=== PATIENT | male | born 1940 | race Caucasian/White ===

== ENCOUNTER 2019-05-30 08:28 | Emergency (ER) | payer MEDICARE ==
[2019-05-30 08:36] VITALS: TEMP 97.6
[2019-05-30] MEDS ORDERED: SODIUM CHLORIDE 0.9% 1,000 ML IV STA (08:49)
[2019-05-30] MEDS ORDERED: ASPIRIN 81 MG PO STA (08:49)
--- NOTE | 2019-05-30 08:53 | ED ---
General Adult HPI - General Chief complaint: Arrhythmia/Palpitations Stated complaint: BP problems Time Seen by Provider: 05/30/19 08:29 Source: patient, RN notes reviewed Mode of arrival: wheelchair Limitations: no limitations - History of Present Illness Initial comments: Patient is a pleasant 78-year-old male presenting to the emergency Department wi th for concerns regarding palpitations. Patient woke up this morning and felt his heart racing. Patient did take his blood pressure heart rate on the monitor. Monitor showed heart rate at 127 with fibrillation. Patient does have history of atrial fibrillation. Patient no longer on Coumadin. Patient recently was changed from losartan to hydrochlorothiazide. Blood pressure was high this morning. Patient did take his hydrochlorothiazide as well as Xanax. Patient is symptom-free at this time. Patient states palpitations lasted less than 15 or 20 minutes. - Related Data Home Medications Medication Instructions Recorded Confirmed Levothyroxine Sodium [Synthroid] 200 mcg PO DAILY 01/31/15 05/30/19 Meclizine [Antivert] 25 mg PO TID PRN 01/31/15 05/30/19 Multivitamin [Men's Multi-Vitamin] 1 tab PO DAILY 01/31/15 05/30/19 Heath-3 Fatty Acids/Fish Oil [Fish 1 cap PO DAILY 01/31/15 05/30/19 Oil 1,000 mg Softgel] Omeprazole [PriLOSEC] 20 mg PO AC-BRKFST 01/31/15 05/30/19 metFORMIN HCL [Glucophage] 1,000 mg PO BID 01/31/15 05/30/19 ALPRAZolam [Xanax] 0.5 mg PO DAILY PRN 05/30/19 05/30/19 Doxazosin [Cardura] 4 mg PO DAILY 05/30/19 05/30/19 Losartan/Hydrochlorothiazide 1 tab PO DAILY 05/30/19 05/30/19 [Hyzaar 100-25 Tablet] Allergies Allergy/AdvReac Type Severity Reaction Status Date / Time Beta-Blockers Allergy bradycardia Verified 05/30/19 10:20 (Beta-Adrenergic Bloc carvedilol Allergy palpitation Verified 05/30/19 10:20 s nifedipine [From Adalat] Allergy Rash/Hives Verified 05/30/19 10:20 amlodipine besylate AdvReac face Verified 05/30/19 10:20 [From Norvasc] red,throat itching hydrochlorothiazide AdvReac BLOOD Verified 05/30/19 10:20 [From Zestoretic] PRESSURE ISSUES lisinopril [From Zestoretic] AdvReac BLOOD Verified 05/30/19 10:20 PRESSURE ISSUES paroxetine HCl [From Paxil] AdvReac feels Verified 05/30/19 10:20 "wired" Review of Systems ROS Statement: Those systems with pertinent positive or pertinent negative responses have been documented in the HPI. ROS Other: All systems not noted in ROS Statement are negative. Constitutional: Denies: fever Eyes: Denies: eye pain ENT: Denies: ear pain Respiratory: Denies: cough, dyspnea Cardiovascular: Reports: palpitations. Denies: chest pain Endocrine: Denies: fatigue Gastrointestinal: Denies: abdominal pain Genitourinary: Denies: dysuria Musculoskeletal: Denies: back pain Skin: Denies: rash Neurological: Denies: weakness Past Medical History Past Medical History: Diabetes Mellitus, GERD/Reflux, Hypertension, Osteoarthritis (OA), Sleep Apnea/CPAP/BIPAP, Thyroid Disorder Additional Past Medical History / Comment(s): 02/08/15 Pt admitted to floor s/p total R knee arthroplasty. Other HX: NIDDM, sleep apnea - uses CPAP, hypothyroidism. 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 Other SX: thyroidectomy, left knee replaced, left achilles repair Past Anesthesia/Blood Transfusion Reactions: No Reported Reaction Past Psychological History: Anxiety Smoking Status: Never smoker Past Alcohol Use History: None Reported Past Drug Use History: None Reported - Past Family History Mother Family Medical History: No Reported History General Exam Limitations: no limitations General appearance: alert, in no apparent distress Head exam: Present: normocephalic Eye exam: Present: normal appearance, PERRL ENT exam: Present: normal oropharynx Neck exam: Present: normal inspection Respiratory exam: Present: normal lung sounds bilaterally Cardiovascular Exam: Present: regular rate, normal rhythm GI/Abdominal exam: Present: soft. Absent: tenderness Extremities exam: Present: normal inspection. Absent: pedal edema, calf tenderness Neurological exam: Present: alert Psychiatric exam: Present: normal affect, normal mood Skin exam: Present: normal color Course Vital Signs 05/30/19 05/30/19 05/30/19 08:32 08:51 09:00 Temperature 97.6 F Pulse Rate 100 84 Respiratory 18 24 12 Rate Blood Pressure 187/85 147/79 O2 Sat by Pulse 97 93 L Oximetry 05/30/19 05/30/19 05/30/19 09:30 10:00 10:06 Temperature Pulse Rate 80 90 Respiratory 10 L 18 Rate Blood Pressure 145/86 138/88 138/88 O2 Sat by Pulse 94 L 96 Oximetry EKG Findings - EKG Comments: EKG Findings:: Sinus rhythm and 91. First-degree AV block CT of 214. QRS 100. QT 340. QTc 418. Normal axis. Normal QRS. No acute ST change. premature complex present. Medical Decision Making - Medical Decision Making Patient reevaluated and resting comfortably in bed, symptom-free. Heart rate normal sinus rhythm at 90. Blood pressure has improved. Case was discussed in detail with Dr. Stewart who does recommend observation for monitoring and will see patient regarding anticoagulation if needed. Case was also discussed with Dr. Castro, covering for Dr. Mary, who will admit. This was explained to patient and . Patient was updated on results and plan. Patient was agreeable to admission and then later decided to leave AGAINST MEDICAL ADVICE. Patient stated he would follow-up with his doctor on Saturday. Patient is advised to take at least aspirin daily until follow-up and also follow-up with cardiology. - Lab Data Result diagrams: 05/30/19 09:13 05/30/19 09:13 Lab Results 05/30/19 05/30/19 05/30/19 Range/Units 09:13 09:13 09:13 WBC 7.3 (3.8-10.6) k/uL RBC 4.90 (4.30-5.90) m/uL Hgb 16.0 (13.0-17.5) gm/dL Hct 47.2 (39.0-53.0) % MCV 96.4 (80.0-100.0) fL MCH 32.6 (25.0-35.0) pg MCHC 33.8 (31.0-37.0) g/dL RDW 13.2 (11.5-15.5) % Plt Count 175 (150-450) k/uL Neutrophils % 69 % Lymphocytes % 20 % Monocytes % 6 % Eosinophils % 3 % Basophils % 1 % Neutrophils # 5.0 (1.3-7.7) k/uL Lymphocytes # 1.4 (1.0-4.8) k/uL Monocytes # 0.5 (0-1.0) k/uL Eosinophils # 0.2 (0-0.7) k/uL Basophils # 0.1 (0-0.2) k/uL PT 11.8 (9.0-12.0) sec INR 1.1 (<1.2) APTT 26.8 (22.0-30.0) sec Sodium 139 (137-145) mmol/L Potassium 4.2 (3.5-5.1) mmol/L Chloride 103 (98-107) mmol/L Carbon Dioxide 25 (22-30) mmol/L Anion Gap 11 mmol/L BUN 15 (9-20) mg/dL Creatinine 0.95 (0.66-1.25) mg/dL Est GFR (CKD-EPI)AfAm 89 (>60 ml/min/1.73 sqM) Est GFR (CKD-EPI)NonAf 77 (>60 ml/min/1.73 sqM) Glucose 161 H (74-99) mg/dL Calcium 10.3 H (8.4-10.2) mg/dL Magnesium 1.6 (1.6-2.3) mg/dL Total Bilirubin 0.9 (0.2-1.3) mg/dL AST 26 (17-59) U/L ALT 32 (21-72) U/L Alkaline Phosphatase 47 (38-126) U/L Creatine Kinase 201 H (55-170) U/L Troponin I (0.000-0.034) ng/mL Total Protein 7.2 (6.3-8.2) g/dL Albumin 4.5 (3.5-5.0) g/dL TSH 2.400 (0.465-4.680) mIU/L Free T4 1.60 (0.78-2.19) ng/dL Free T3 pg/mL 3.1 (2.8-5.3) pg/ml 05/30/19 Range/Units 09:13 WBC (3.8-10.6) k/uL RBC (4.30-5.90) m/uL Hgb (13.0-17.5) gm/dL Hct (39.0-53.0) % MCV (80.0-100.0) fL MCH (25.0-35.0) pg MCHC (31.0-37.0) g/dL RDW (11.5-15.5) % Plt Count (150-450) k/uL Neutrophils % % Lymphocytes % % Monocytes % % Eosinophils % % Basophils % % Neutrophils # (1.3-7.7) k/uL Lymphocytes # (1.0-4.8) k/uL Monocytes # (0-1.0) k/uL Eosinophils # (0-0.7) k/uL Basophils # (0-0.2) k/uL PT (9.0-12.0) sec INR (<1.2) APTT (22.0-30.0) sec Sodium (137-145) mmol/L Potassium (3.5-5.1) mmol/L Chloride (98-107) mmol/L Carbon Dioxide (22-30) mmol/L Anion Gap mmol/L BUN (9-20) mg/dL Creatinine (0.66-1.25) mg/dL Est GFR (CKD-EPI)AfAm (>60 ml/min/1.73 sqM) Est GFR (CKD-EPI)NonAf (>60 ml/min/1.73 sqM) Glucose (74-99) mg/dL Calcium (8.4-10.2) mg/dL Magnesium (1.6-2.3) mg/dL Total Bilirubin (0.2-1.3) mg/dL AST (17-59) U/L ALT (21-72) U/L Alkaline Phosphatase (38-126) U/L Creatine Kinase (55-170) U/L Troponin I 0.020 (0.000-0.034) ng/mL Total Protein (6.3-8.2) g/dL Albumin (3.5-5.0) g/dL TSH (0.465-4.680) mIU/L Free T4 (0.78-2.19) ng/dL Free T3 pg/mL (2.8-5.3) pg/ml - Radiology Data Radiology results: image reviewed (Chest x-ray shows mild cardiac. Cannot exclude small effusion.) Disposition Clinical Impression: Palpitations Disposition: Left Against Medical Advice Instructions (If sedation given, give patient instructions): A-fib (Atrial Fibrillation) (ED), Heart Palpitations (ED) Additional Instructions: Please follow-up with Dr. Mary Saturday. Please also follow-up with cardiology Saturday or Saturday. These take aspirin daily, full strength until follow-up. You may need further medication as determined by her primary care physician or production internship. Return for increased heart rate, uncontrolled blood pressure, worsening symptoms or other concerns. Is patient prescribed a controlled substance at d/c from ED?: No Referrals: Dora Mary DO [Primary Care Provider] - 1-2 days Kandace Stewart MD [STAFF PHYSICIAN] - 1-2 days Time of Disposition: 10:40
[2019-05-30 09:26] LABS: Basophils # (A) 0.1 k/uL (0-0.2); Basophils % (A) 1 %; Eosinophils # (A) 0.2 k/uL (0-0.7); Eosinophils % (A) 3 %; HCT 47.2 % (39.0-53.0); Lymphocytes # (A) 1.4 k/uL (1.0-4.8); Lymphocytes % (A) 20 %; MCH 32.6 pg (25.0-35.0); MCHC 33.8 g/dL (31.0-37.0); MCV 96.4 fL (80.0-100.0); Mean Platelet Volume 6.6; Monocytes # (A) 0.5 k/uL (0-1.0); Monocytes % (A) 6 %; Neutrophils % (A) 69 %; Platelet Count 175 k/uL (150-450); RDW 13.2 % (11.5-15.5); WBC 7.3 k/uL (3.8-10.6)
[2019-05-30 09:37] LABS: INR 1.1 (<1.2); Partial Thromboplastin Time 26.8 sec (22.0-30.0); Prothrombin Time 11.8 sec (9.0-12.0)
[2019-05-30 09:41] LABS: Albumin 4.5 g/dL (3.5-5.0); Calcium 10.3 mg/dL (8.4-10.2); Magnesium 1.6 mg/dL (1.6-2.3); Potassium 4.2 mmol/L (3.5-5.1); Total Bilirubin 0.9 mg/dL (0.2-1.3); Total Protein 7.2 g/dL (6.3-8.2)
--- NOTE | 2019-05-30 09:57 | XR ---
EXAMINATION TYPE: XR chest 2V DATE OF EXAM: 05/30/2019 HISTORY: dysrhythmia. REFERENCE: Previous study dated 02/15/2015. FINDINGS: The heart is mildly enlarged. There are senescent changes throughout the lungs. There is no pneumonia or edema. Both CP angles are obscured. I could not exclude small effusions. IMPRESSION: 1. MILD CARDIOMEGALY. 2. I COULD NOT EXCLUDE SMALL, BILATERAL EFFUSIONS.
[2019-05-30 09:58] LABS: T4, Free (Free Thyroxine) 1.6 ng/dL (0.78-2.19)
[2019-05-30 11:26] VITALS: BP 141/90; PULSE 82; RESP 13
== END 2019-05-30 11:29 | disposition left against medical advice (07) ==
LOC: EC 08:28
DX: R00.2 Palpitations (principal); E11.9 Type 2 diabetes mellitus without complications; K21.9 Gastro-esophageal reflux disease without esophagitis; I10 Essential (primary) hypertension; F41.9 Anxiety disorder, unspecified; I48.91 Unspecified atrial fibrillation; E03.9 Hypothyroidism, unspecified; M19.90 Unspecified osteoarthritis, unspecified site; G47.30 Sleep apnea, unspecified; Z79.890 Hormone replacement therapy; Z79.84 Long term (current) use of oral hypoglycemic drugs; Z79.899 Other long term (current) drug therapy; Z88.8 Allergy status to other drugs, medicaments and biological substances; Z96.653 Presence of artificial knee joint, bilateral; Z99.89 Dependence on other enabling machines and devices
CPT/HCPCS: 36415; 71046; 80053; 82550; 83735; 84439; 84443; 84481; 84484; 85025; 85610; 85730; 93005; 96360; 96361; 99285